=== PATIENT | female | born 2000 | race Caucasian/White ===

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

== ENCOUNTER 2021-08-07 23:45 | Emergency (ER) | payer MEDICAID ==
[~2021-08-07] VITALS: Ht 157.5 cm; Wt 67.1 kg
[2021-08-08 00:13] VITALS: BP 123/86
[2021-08-08 00:38] LABS: APPEARANCE,URINE HAZY (CLEAR); BILIRUBIN,URINE NEGATIVE (NEGATIVE); BLOOD, URINE NEGATIVE (NEGATIVE); COLOR,URINE ORANGE (YELLOW); LEUKOCYTE ESTERASE ,URINE TRACE (NEGATIVE); NITRITE, URINE POSITIVE (NEGATIVE); PH,URINE 6.5 (5.0-9.0); UGLUCOSE TRACE (NEGATIVE)
[2021-08-08] MEDS ORDERED: CEPH-588 PO (00:43)
[2021-08-08] MEDS: cephALEXin 500 MG CAP PO ONE (00:49)
[2021-08-08 00:51] LABS: RBC,URINE 0-5 /HPF (0-5)
[2021-08-08 00:52] VITALS: BP 120/64
[2021-08-08 00:52] LABS: WBC,URINE 80-100 /HPF (0-5)
[2021-08-08] MEDS ORDERED: ONDANSETRON 4 MG ODT PO ONE (00:55)
[2021-08-08] MEDS ORDERED: ONDA-188 SL (00:56)
[2021-08-08] MEDS ORDERED: PHEN-1877 PO (00:56)
== END 2021-08-08 01:00 | disposition home or self-care (01) ==
LOC: MED 23:45
DX: R30.0 Dysuria (principal); Z79.899 Other long term (current) drug therapy
CPT/HCPCS: 81001; 87086; 99283

== ENCOUNTER 2021-09-02 22:32 | Emergency (ER) | payer MEDICAID ==
[~2021-09-02] VITALS: Ht 160 cm; Wt 65.3 kg
[~2021-09-02 22:32] MED LIST: CEPH-588 PO; ONDA-188 SL; PHEN-1877 PO
[2021-09-02 22:43] VITALS: BP 128/86
--- NOTE | 2021-09-02 22:48 | NUR ---
patient to lobby with urine cup for collection
--- NOTE | 2021-09-02 23:02 | NUR ---
Pt ambulated to bed 06.
[2021-09-03] MEDS: KETOROLAC 30 MG/ML VIAL IM ONE (00:09)
[2021-09-03 01:44] LABS: BASOPHILS # (AUTO) 0.1 K/uL (0.00-0.22); BASOPHILS % (AUTO) 1.1 % (0.0-2.0); EOSINOPHILS # (AUTO) 0.4 K/uL (0-0.4); HEMOGLOBIN 11.4 g/dL (12.0-16.0); LYMPHOCYTES # (AUTO) 2.3 K/uL (2.5-16.5); MEAN CORPUSCULAR HEMOGLOBIN 28 pg (27-31); MEAN CORPUSCULAR HGB CONC 34 g/dL (33-37); MEAN CORPUSCULAR VOLUME 84.7 fL (80-94); MONOCYTES # (AUTO) 0.8 K/uL (0.8-1.0); MONOCYTES % (AUTO) 10.4 % (1.7-9.3); NEUTROPHILS # (AUTO) 3.7 K/uL (1.8-7.7); NEUTROPHILS % (AUTO) 51.5 % (42.2-75.2); PLATELET COUNT (AUTO) 300 K/uL (140-450); RED BLOOD CELL COUNT(AUTO) 4.01 MIL/uL (4.20-5.40); RED CELL DISTRIBUTION WIDTH 13.8 % (11.6-13.7); WHITE BLOOD COUNT (AUTO) 7.3 K/uL (4.8-10.8)
[2021-09-03] MEDS: HYDROcodone/APAP 5/325 MG 1 TAB TAB PO ONE (01:49)
[2021-09-03 02:00] LABS: ALBUMIN 3.5 g/dL (3.4-5.0); ANION GAP 10.8 (8-16); CARBON DIOXIDE 28.5 mmol/L (21-32); CREATININE 0.7 mg/dL (0.6-1.3); POTASSIUM 4.3 mmol/L (3.5-5.1); TOTAL BILIRUBIN 0.3 mg/dL (0.0-1.0)
[2021-09-03] MEDS ORDERED: NAPR-54 PO (04:03)
[2021-09-03 04:26] VITALS: BP 115/68
== END 2021-09-03 04:26 | disposition home or self-care (01) ==
LOC: MED 22:32
DX: R07.89 Other chest pain (principal); Z79.899 Other long term (current) drug therapy
CPT/HCPCS: 36415; 71046; 76705; 80053; 81025; 85025; 96372; 99285; J1885; Q0092

== ENCOUNTER 2022-01-08 18:49 | Emergency (ER) | payer MEDICAID ==
[~2022-01-08] VITALS: Ht 160 cm; Wt 70.8 kg
[~2022-01-08 18:49] MED LIST changes: +NAPR-54 PO
[2022-01-08 18:56] VITALS: BP 130/71
--- NOTE | 2022-01-08 19:00 | NUR ---
PATIENT AMBULATED TO BED 8. STEADY AND EVEN GAIT.
--- NOTE | 2022-01-08 19:09 | NUR ---
21 y/o female bib brother, c/o right hand 5th digit pain, pt nail lifted off nail bed today when putting on jeans earlier today. 10/05 pain at this time. site is not bleeding. denies chills, fever, heredia, and chest pain. safety precautions in place. bed in locked position. pmh: denies nka med: denies
--- NOTE | 2022-01-08 19:18 | NUR ---
ENDORSED TO [employer] ER NURSE FOR CONTINUITY OF CARE. PT IS STABLE
--- NOTE | 2022-01-08 19:30 | NUR ---
RESTING QUIETY, AWAITING EXAM AND EVAL
[2022-01-08] MEDS ORDERED: LIDOCAINE MPF 1% 10 MG/ML VIAL INJ ONE (20:00)
--- NOTE | 2022-01-08 21:28 | NUR ---
DR ULLOA AT BEDSIDE
[2022-01-08 22:05] VITALS: BP 128/76
--- NOTE | 2022-01-08 22:05 | NUR ---
Patient discharged with v/s stable. Written and verbal after care instructions given and explained. Patient verbalized understanding. Ambulatory with steady gait. All questions addressed prior to discharge. Advised to follow up with PMD.
== END 2022-01-08 22:05 | disposition home or self-care (01) ==
LOC: MED 18:49
DX: S61.306A Unspecified open wound of right little finger with damage to nail, initial encounter (principal); Z79.899 Other long term (current) drug therapy; X58.XXXA Exposure to other specified factors, initial encounter; Y93.89 Activity, other specified; Y92.89 Other specified places as the place of occurrence of the external cause; Y99.8 Other external cause status
CPT/HCPCS: 29130; 99283; J2001

== ENCOUNTER 2022-07-18 23:52 | Observation (INO) | payer MEDICAID ==
[~2022-07-18] VITALS: Ht 160 cm; Wt 72.6 kg
[2022-07-19 00:37] VITALS: BP 123/74
== END 2022-07-19 01:38 | disposition home or self-care (01) ==
LOC: MLD 23:52
PROVIDERS: ADMIT Obstetrics & Gynecology; ATTEND Obstetrics & Gynecology
DX: O36.8120 Decreased fetal movements, second trimester, not applicable or unspecified (principal); Z20.822 Contact with and (suspected) exposure to COVID-19; O26.892 Other specified pregnancy related conditions, second trimester; R10.9 Unspecified abdominal pain; Z3A.28 28 weeks gestation of pregnancy
CPT/HCPCS: 59025; 76819; 81000; 87426; G0378; Q0092